=== PATIENT | male | born 1940 | race Caucasian/White ===

== ENCOUNTER 2020-12-22 17:49 | Inpatient (IN) | payer MEDICARE ==
[~2020-12-22] VITALS: Ht 188 cm; Wt 110.8 kg
--- NOTE | 2020-12-22 17:59 | NUR ---
per [facility] 5000 unit bolus given at [facility] with pt running at 1200 units per hour. heparin bag obtained from [employer]. pt dc'd from [facility] heparin and heparin protocol at bedside. pt weighed on weighted scale. pharmacy consulted as per protocol. pharmacist dosing rate is 900 units and 9 ml/hr
[2020-12-22 19:00] LABS: TROPONIN I 0.429 ng/mL (0.000-0.045)
[2020-12-22] MEDS ORDERED: HEPARIN 25,000 UNITS/250ML PMX 250 ML IV PRN ×2 (19:00→20:30)
--- NOTE | 2020-12-22 19:00 | NUR ---
pt in bed lab called for critical trops. aware
--- NOTE | 2020-12-22 19:36 | NUR ---
Hannah (brother) [phone]. He has called twice now.
--- NOTE | 2020-12-22 19:44 | NUR ---
pt in bed, heprin running
[2020-12-22] MEDS ORDERED: HEPARIN 5,000 UNITS/ML, 1ML IV PRN (20:30)
[2020-12-22] MEDS ORDERED: HEPARIN 5,000 UNITS/ML, 1ML IV ONE (20:30)
--- NOTE | 2020-12-22 20:53 | NUR ---
PT ADMITTED TO TELE. REPORT GIVEN TO PATTI
[2020-12-22 21:15] VITALS: BP 160/99
[2020-12-22] MEDS ORDERED: MELATONIN 5 MG TABLET PO PRN (21:30)
[2020-12-22] MEDS ORDERED: NITROGLYCERIN 0.4 MG BOTTLE (25 TABS) SL PRN (21:30)
[2020-12-22] MEDS ORDERED: ACETAMINOPHEN 325 MG TABLET PO PRN (21:30)
[2020-12-22] MEDS ORDERED: DOCUSATE 100 MG CAPSULE PO PRN (21:30)
[2020-12-22] MEDS ORDERED: LIDODERM 5% PATCH TD PRN (21:30)
[2020-12-22] MEDS ORDERED: LABETALOL 5MG/ML, 20ML IVPush PRN (21:30)
[2020-12-22] MEDS ORDERED: morphine SULFATE 10 MG/ML, 1ML IVPush PRN (21:30)
[2020-12-23] VITALS (7 sets, daily range): BP systolic 136–165; BP diastolic 81–110
[2020-12-23] MEDS ORDERED: FUROSEMIDE 20 MG/2 ML IV SCH ×3 (00:30→17:00)
[2020-12-23 01:18] LABS: TROPONIN I 0.314 ng/mL (0.000-0.045)
[2020-12-23] MEDS: METOPROLOL SUCCINATE 25 MG TAB.ER.24H PO SCH (05:10)
[2020-12-23 06:38] LABS: BASOPHILS % (AUTO) 1 % (0-1); EOSINOPHILS % (AUTO) 1 % (1-7); LYMPHOCYTES % (AUTO) 11 % (22-44); MEAN CORPUSCULAR HEMOGLOBIN 36.4 pg (27.5-34.5); MEAN CORPUSCULAR HGB CONC 33.2 g/dL (33.2-36.2); MEAN PLATELET VOLUME 10.6 fL (7.4-10.4); MONOCYTES % (AUTO) 12 % (2-9); NEUTROPHILS % (AUTO) 75 % (42-75); PLATELET COUNT 214 x10^3/uL (130-400); RED BLOOD COUNT 3.93 x10^6/uL (4.38-5.82); RED CELL DISTRIBUTION WIDTH 15.2 % (9.4-14.8)
[2020-12-23 06:49] LABS: ANION GAP 8 mmol/L (5-15); CALCIUM 9.1 mg/dL (8.5-10.1); CHLORIDE 107 mmol/L (98-107); CHOLESTEROL, TOTAL 183 mg/dL (140-239); CREATININE 1.08 mg/dL (0.7-1.3); TRIGLYCERIDES 65 mg/dL (50-200); VLDL CHOLESTEROL 13 mg/dL (0-25)
[2020-12-23 06:54] LABS: CHOL/HDL RATIO 2.4; HDL CHOL % 41 % (26-37); HDL CHOLESTEROL (DIRECT) 75 mg/dL (40-60); LDL CHOLESTEROL,CALCULATED 95 mg/dL (54-169); LDL/HDL RATIO 1.3 (0.5-3.0); TROPONIN I 0.312 ng/mL (0.000-0.045)
[2020-12-23] MEDS ORDERED: REGADENOSON 0.4 MG/5 ML SYRINGE ONE (08:08)
[2020-12-23 08:31] LABS: MD SCAN
[2020-12-23] MEDS: SPIRONOLACTONE 25 MG TABLET PO SCH (09:29)
[2020-12-23] MEDS ORDERED: METO25TA91 PO (14:21)
[2020-12-23] MEDS ORDERED: SPIR25TA5 PO (14:21)
[2020-12-23] MEDS ORDERED: FURO-92 PO (14:21)
[2020-12-23] MEDS ORDERED: ENOXAPARIN 40 MG/0.4 ML SQ SCH (14:30)
[2020-12-23] MEDS ORDERED: FLU VACC QS2020-21(6MOS UP)/PF 60MCG/0.5 ML SYR IM-VACC ONE (15:30)
[2020-12-23] MEDS: FUROSEMIDE 40 MG/4 ML IV SCH (16:19)
[2020-12-23] MEDS ORDERED: HEPARIN 25,000 UNITS/250ML PMX 250 ML IV PRN (17:30)
[2020-12-23] MEDS ORDERED: HEPARIN 5,000 UNITS/ML, 1ML IV PRN (17:30)
[2020-12-23] MEDS: LORazepam 2 MG/ML, 1ML IV PRN (23:56)
[2020-12-24] VITALS (8 sets, daily range): BP systolic 134–173; BP diastolic 70–95
[2020-12-24] MEDS ORDERED: LORazepam 2 MG/ML, 1ML IV PRN ×4
[2020-12-24] MEDS: LORazepam 2 MG/ML, 1ML IV PRN (04:38)
[2020-12-24 05:08] LABS: ALBUMIN 3.1 g/dL (3.4-5.0); ANION GAP 8 mmol/L (5-15); CALCIUM 8.3 mg/dL (8.5-10.1); CHLORIDE 106 mmol/L (98-107); CREATININE 1.09 mg/dL (0.7-1.3)
[2020-12-24 05:14] LABS: BASOPHILS % (AUTO) 2 % (0-1); EOSINOPHILS % (AUTO) 2 % (1-7); LYMPHOCYTES % (AUTO) 11 % (22-44); MEAN CORPUSCULAR HEMOGLOBIN 37.2 pg (27.5-34.5); MEAN CORPUSCULAR HGB CONC 33.7 g/dL (33.2-36.2); MEAN PLATELET VOLUME 11.5 fL (7.4-10.4); MONOCYTES % (AUTO) 16 % (2-9); NEUTROPHILS % (AUTO) 70 % (42-75); PLATELET COUNT 215 x10^3/uL (130-400); RED BLOOD COUNT 3.91 x10^6/uL (4.38-5.82); RED CELL DISTRIBUTION WIDTH 15.5 % (9.4-14.8)
[2020-12-24 05:56] LABS: MD SCAN
[2020-12-24] MEDS: METOPROLOL SUCCINATE 25 MG TAB.ER.24H PO SCH (06:00)
[2020-12-24] MEDS ORDERED: ENALAPRILAT 1.25 MG/ML, 2ML IV PRN (07:00)
[2020-12-24] MEDS ORDERED: HEPARIN 5,000 UNITS/ML, 1ML IV PRN (07:30)
[2020-12-24] MEDS ORDERED: AMIODARONE 150 MG in DEXTROSE 5% 100 ML IV ONE (07:30)
[2020-12-24] MEDS ORDERED: HEPARIN 25,000 UNITS/250ML PMX 250 ML IV PRN (07:30)
[2020-12-24] MEDS ORDERED: FILTER 0.22 MICRON IV ONE (07:30)
[2020-12-24] MEDS: FUROSEMIDE 40 MG/4 ML IV SCH ×2 (08:18→17:38)
[2020-12-24] MEDS: SPIRONOLACTONE 25 MG TABLET PO SCH (08:29)
[2020-12-24 08:30] LABS: ALBUMIN 3.3 g/dL (3.4-5.0); BILIRUBIN, DIRECT 0.4 mg/dL (0.1-0.2)
[2020-12-24 08:32] LABS: BILIRUBIN,INDIRECT 1.2 mg/dL (0.0-2.0); BILIRUBIN,TOTAL 1.6 mg/dL (0.2-1.0); TOTAL PROTEIN 7.8 g/dL (6.4-8.2)
[2020-12-24] MEDS ORDERED: APIXABAN 5 MG TABLET PO SCH (09:00)
[2020-12-25 02:42] VITALS: BP 143/89
[2020-12-25 04:51] LABS: BASOPHILS % (AUTO) 0 % (0-1); EOSINOPHILS % (AUTO) 2 % (1-7); LYMPHOCYTES % (AUTO) 14 % (22-44); MEAN CORPUSCULAR HEMOGLOBIN 37.1 pg (27.5-34.5); MEAN PLATELET VOLUME 11.5 fL (7.4-10.4); MONOCYTES % (AUTO) 13 % (2-9); NEUTROPHILS % (AUTO) 70 % (42-75); PLATELET COUNT 227 x10^3/uL (130-400); RED BLOOD COUNT 4.23 x10^6/uL (4.38-5.82)
[2020-12-25 04:58] LABS: INTERNATIONAL NORMALIZED RATIO 1.17 (0.93-1.1); PROTHROMBIN TIME 12.5 Seconds (9.6-11.5)
[2020-12-25 05:01] LABS: ANION GAP 8 mmol/L (5-15); CALCIUM 8.8 mg/dL (8.5-10.1); CHLORIDE 100 mmol/L (98-107)
[2020-12-25] MEDS: METOPROLOL SUCCINATE 25 MG TAB.ER.24H PO SCH (05:45)
[2020-12-25 05:46] VITALS: BP 147/99
[2020-12-25 05:47] LABS: MD SCAN
[2020-12-25] MEDS ORDERED: POTASSIUM CHLORIDE 20 MEQ TAB.ER.PRT PO ONE (06:30)
[2020-12-25] MEDS ORDERED: MAGNESIUM SULFATE PMX 2GM/50ML 50 ML IV ONE (06:30)
[2020-12-25] MEDS: APIXABAN 5 MG TABLET PO SCH ×2 (08:13→21:23)
[2020-12-25] MEDS: FUROSEMIDE 40 MG/4 ML IV SCH ×2 (08:13→17:42)
[2020-12-25] MEDS: SPIRONOLACTONE 25 MG TABLET PO SCH (08:13)
[2020-12-25 08:35] VITALS: BP 149/51
[2020-12-25 13:39] VITALS: BP 149/78
[2020-12-25 21:12] VITALS: BP 118/75
[2020-12-26 02:32] VITALS: BP 141/86
[2020-12-26 05:07] LABS: BASOPHILS % (AUTO) 1 % (0-1); EOSINOPHILS % (AUTO) 2 % (1-7); LYMPHOCYTES % (AUTO) 14 % (22-44); MEAN CORPUSCULAR HEMOGLOBIN 37.1 pg (27.5-34.5); MEAN CORPUSCULAR HGB CONC 34.6 g/dL (33.2-36.2); MEAN PLATELET VOLUME 10.6 fL (7.4-10.4); MONOCYTES % (AUTO) 18 % (2-9); NEUTROPHILS % (AUTO) 65 % (42-75); PLATELET COUNT 218 x10^3/uL (130-400); RED BLOOD COUNT 4.15 x10^6/uL (4.38-5.82)
[2020-12-26 05:25] LABS: ANION GAP 8 mmol/L (5-15); CALCIUM 8.6 mg/dL (8.5-10.1); CHLORIDE 103 mmol/L (98-107)
[2020-12-26 05:41] LABS: MD SCAN
[2020-12-26] MEDS ORDERED: POTASSIUM CHLORIDE 20 MEQ TAB.ER.PRT PO ONE (07:30)
[2020-12-26 07:57] VITALS: BP 150/100
[2020-12-26] MEDS: APIXABAN 5 MG TABLET PO SCH ×2 (08:18→19:42)
[2020-12-26] MEDS: SPIRONOLACTONE 25 MG TABLET PO SCH (08:18)
[2020-12-26] MEDS: FUROSEMIDE 40 MG/4 ML IV SCH ×2 (08:19→17:47)
[2020-12-26] MEDS: METOPROLOL SUCCINATE 50 MG TAB.ER.24H PO SCH (08:22)
[2020-12-26] MEDS ORDERED: METO-93 PO (10:47)
[2020-12-26] MEDS ORDERED: APIX5TAB PO (10:47)
[2020-12-26 13:47] VITALS: BP 139/79
[2020-12-26 20:26] VITALS: BP 139/90
[2020-12-27 01:05] VITALS: BP 136/90
[2020-12-27 04:58] LABS: BASOPHILS % (AUTO) 1 % (0-1); EOSINOPHILS % (AUTO) 2 % (1-7); LYMPHOCYTES % (AUTO) 12 % (22-44); MEAN CORPUSCULAR HEMOGLOBIN 36.9 pg (27.5-34.5); MEAN CORPUSCULAR HGB CONC 33.8 g/dL (33.2-36.2); MEAN PLATELET VOLUME 10.6 fL (7.4-10.4); MONOCYTES % (AUTO) 13 % (2-9); NEUTROPHILS % (AUTO) 72 % (42-75); PLATELET COUNT 232 x10^3/uL (130-400); RED BLOOD COUNT 4.35 x10^6/uL (4.38-5.82); RED CELL DISTRIBUTION WIDTH 14.8 % (9.4-14.8)
[2020-12-27 04:59] LABS: MD NO
[2020-12-27 05:08] LABS: ANION GAP 7 mmol/L (5-15); CALCIUM 9.2 mg/dL (8.5-10.1); CHLORIDE 103 mmol/L (98-107); CREATININE 1.33 mg/dL (0.7-1.3)
[2020-12-27 05:52] VITALS: BP 137/86
[2020-12-27] MEDS: METOPROLOL SUCCINATE 50 MG TAB.ER.24H PO SCH (05:53)
[2020-12-27] MEDS: FUROSEMIDE 40 MG/4 ML IV SCH (07:30)
[2020-12-27] MEDS: SPIRONOLACTONE 25 MG TABLET PO SCH (08:28)
[2020-12-27] MEDS: APIXABAN 5 MG TABLET PO SCH (08:28)
[2020-12-27 08:40] VITALS: BP 139/90
== END 2020-12-27 10:20 | disposition home health service (06) | DRG 281 ==
LOC: ED 20:24 → EDIP 20:58 → 5SO 21:04 → DCLOUNGE 12-27 10:07
PROVIDERS: ADMIT Internal Medicine; ATTEND Internal Medicine
DX: I11.0 Hypertensive heart disease with heart failure (principal); I21.A1 Myocardial infarction type 2; F10.231 Alcohol dependence with withdrawal delirium; E78.5 Hyperlipidemia, unspecified; I25.10 Atherosclerotic heart disease of native coronary artery without angina pectoris; I48.91 Unspecified atrial fibrillation; I50.23 Acute on chronic systolic (congestive) heart failure; I51.3 Intracardiac thrombosis, not elsewhere classified; M06.9 Rheumatoid arthritis, unspecified; Z82.0 Family history of epilepsy and other diseases of the nervous system; E66.9 Obesity, unspecified; Z68.31 Body mass index [BMI] 31.0-31.9, adult; D75.89 Other specified diseases of blood and blood-forming organs; Z86.74 Personal history of sudden cardiac arrest; Z87.891 Personal history of nicotine dependence; I37.1 Nonrheumatic pulmonary valve insufficiency
CPT/HCPCS: 36415; 78452; 80048; 80061; 80069; 80076; 82140; 82607; 83036; 83735; 83880; 84100; 84443; 84484; 85025; 85520; 85610; 90686; 93005; 93017; 96374; 99285; C8929; G0378; J1644; J1650; J1940; J2785; Q9957; A9502; J0282; J2060; J3475